=== PATIENT | female | born 1935 ===

== ENCOUNTER 2020-05-05 09:44 | Outpatient (REF) | payer MEDICARE, SELFPAY ==
--- NOTE | 2020-05-05 11:55 | MHC.AU.P13 ---
Adult Audiological Evaluation Date of Visit: 05/05/20 Reason for Appointment: Patient reports difficulty hearing her family. Does patient feel they have a hearing loss?: Yes If Yes, Which Ear?: Both Ears When Was Hearing Difficulty First Noticed?: Gradually developed over the past 10+ years Has hearing been tested previously?: Yes Previous Hearing Test Results: In 01/[address] Parada's office. Results not available for viewing today. 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 Otoscopy: Right Ear: Partial cerumen occlusion, but tympanic membrane could still be visualized Left Ear: Unremarkable Tympanometry: Right Ear: Normal Middle Ear System (Type A) Left Ear: Normal Middle Ear System (Type A) Hearing Evaluation: Transducer(s) Used: Insert Earphones Method: Conventional Audiometry Stimuli Used: Pure Tones Right Ear: Description of Hearing: Mild/moderate to severe sensorineural heairng loss Left Ear: Description of Hearing: Mild/moderate to severe sensorineural hearing loss Speech Recognition Threshold (SRT): Method Used: Monitored Live Voice Stimuli Used: Spondee Words Right Ear: 65 dBHL Left Ear: 65 dBHL Word Discrimination: Not performed, as Gabonese is not patient's first language Recommendations: Recommendations: Audiological re-evaluation in one year. Trial with amplification is recommended. Patient's family plans to research hearing aid options and will call our office if they would like to proceed (see Hearing Aid Evaluation note). Diagnosis: Primary Diagnosis: H90.3 Bilateral Sensorineural Hearing Loss Secondary Diagnosis: H93.13 Tinnitus, Bilateral Services Performed: Services Performed: Pure Tone- Air & Bone (CPT 78823) Speech Audiometry Threshold (SRT/SAT) (CPT 15014) Tympanometry (CPT 22516) Signature: Student/Clinical Fellow: No I have reviewed/agreed with student/fellow documentation: N/A Provider: Juan Jose Wylie, [facility]
--- NOTE | 2020-05-05 11:57 | MHC.AU.P13 ---
Hearing Aid Evaluation- Binaural Date of Visit: 05/05/20 Description of Hearing: Mild/moderate to severe sensorineural hearing loss Summary: Patient was seen today for an audiological evaluation (see note for details). Hearing aid options discussed. Hearing Instrument Selection: Right Ear: Research Engineer: Phonak Model: [place]- [place] Dot[place] Battery Size: Rechargeable Color: Silver Cryptologic Support Specialist: 1M Left Ear: Research Engineer: Phonak Model: [place]- [place] Dotter Battery Size: Rechargeable Color: Silver Cryptologic Support Specialist: 1M Recommendations: Patient's family would like more time to research hearing aids. They will call our office if they would like to proceed. The options listed above are what the patient would like if they do proceed. Diagnosis Code(s): Primary Diagnosis: H90.3 Bilateral Sensorineural Hearing Loss Secondary Diagnosis: H93.13 Tinnitus, Bilateral Services Performed: Assorted Hearing Aid Service: No Charge Hearing Aid Visit Signature: Student/Clinical Fellow: No I have reviewed/agreed with student/fellow documentation: N/A Provider: Juan Jose Wylie [facility]-A
== END 2020-05-05 09:45 | disposition home or self-care (01) ==
LOC: HO.SH 09:44
PROVIDERS: Visit Provider Physician Assistant
DX: H90.3 Sensorineural hearing loss, bilateral (principal); H93.13 Tinnitus, bilateral
CPT/HCPCS: 92553; 92555; 92567